=== PATIENT | female | born 1980 | race Caucasian/White ===

== ENCOUNTER 2018-07-08 19:23 | Emergency (ER) | payer MEDICAID ==
[~2018-07-08] VITALS: Ht 167.6 cm; Wt 66.2 kg
[2018-07-08 19:28] VITALS: Ht 167.6 cm; Wt 66.2 kg
[2018-07-08 20:12] VITALS: BP 102/71
== END 2018-07-08 20:12 | disposition home or self-care (01) ==
LOC: ED 19:23
DX: H10.9 Unspecified conjunctivitis (principal); Z85.6 Personal history of leukemia